=== PATIENT | male | born 1990 | race Caucasian/White ===

== ENCOUNTER 2021-12-12 01:55 | Emergency (ER) | payer OTHER ==
[~2021-12-12] VITALS: Ht 170.2 cm; Wt 63.5 kg
[2021-12-12 02:06] VITALS: BP 139/86
[2021-12-12] MEDS ORDERED: CEPHALEXIN500 MG PO (02:46)
== END 2021-12-12 03:00 | disposition home or self-care (01) ==
LOC: ER 01:55
DX: T81.49XA Infection following a procedure, other surgical site, initial encounter (principal)